=== PATIENT | female | born 1970 | race Caucasian/White ===

== ENCOUNTER 2021-07-21 07:48 | Day surgery (SDC) | payer OTHER ==
[~2021-07-21 07:48] MED LIST: CIPRO500 MG PO; CLONAZEPAM1 MG PO; CODE1TAB37 PO; SYNTHROID75 MCG PO; WELLBUTRI PO
[2021-07-21] MEDS ORDERED: ULTRACET PO (15:29)
== END 2021-07-21 18:05 | disposition home or self-care (01) ==
LOC: CIR.AMB 07:48
PROVIDERS: ATTEND Surgery
DX: C50.012 Malignant neoplasm of nipple and areola, left female breast (principal); Z20.822 Contact with and (suspected) exposure to COVID-19
CPT/HCPCS: 36561; C1751

== ENCOUNTER 2022-04-19 08:30 | Outpatient (CLI) | payer OTHER ==
[~2022-04-19 08:30] MED LIST changes: +ULTRACET PO
== END 2022-04-19 08:31 | disposition home or self-care (01) ==
LOC: LAB 08:30
PROVIDERS: ATTEND Radiology Diagnostic Radiology
DX: C79.31 Secondary malignant neoplasm of brain (principal); C79.32 Secondary malignant neoplasm of cerebral meninges

== ENCOUNTER 2022-05-30 07:23 | Outpatient (CLI) | payer OTHER | END 2022-05-30 07:42 | disposition home or self-care (01) | LOC: MAMO-SONO 07:23 | PROVIDERS: ATTEND Internal Medicine Hematology & Oncology | DX: C50.212 Malignant neoplasm of upper-inner quadrant of left female breast (principal); C77.3 Secondary and unspecified malignant neoplasm of axilla and upper limb lymph nodes ==

== ENCOUNTER 2025-05-06 08:43 | Emergency (ER) | payer OTHER ==
[~2025-05-06] VITALS: Ht 152.4 cm; Wt 50.8 kg
[2025-05-06] MEDS ORDERED: 0.9 % SODIUM CHLORIDE 1,000 ML IV STA (09:15)
[2025-05-06 09:55] LABS: BASO % 0.7 % (0.1-1.2); EOS # 0.06 (0.04-0.54); EOS % 0.6 % (0.7-7.0); LYMPH # 1.75 (1.18-3.74); LYMPH % 17.8 % (19.3-53.1); MEAN PLATELET VOLUME 9.60 fl (9.4-12.4); MONO # 0.68 (0.24-0.82); MONO % 6.9 % (4.7-12.5); NEUT # 7.24 (1.56-6.13); NEUT % 73.8 % (34.0-71.1); RED CELL DISTRIBUTION WIDTH 12.5 % (11.6-14.4)
[2025-05-06 10:09] LABS: URINE APPEARANCE Cloudy; URINE BILIRRUBIN Negative (NEGATIVE); URINE BLOOD Small; URINE COLOR Yellow; URINE GLUCOSE Negative (NEGATIVE); URINE KETONE Trace (NEGATIVE); URINE LEUKOCYTE Large; URINE NITRATE Positive; URINE PROTEIN Negative (NEGATIVE); URINE UROBILINOGEN 0.2 E.U./dl
[2025-05-06 10:10] LABS: URINE EPITHELIAL CELLS 1.5 uL (0.0-38.8); URINE RBC 25.2 uL (0.0-20.8); URINE WBC 2307.0 uL (0.0-23.2)
[2025-05-06 10:13] LABS: URINE BACTERIA > 9821.5 uL (0.0-1933); URINE CAST 0.58 uL (0.0-1.40)
[2025-05-06] MEDS ORDERED: levoFLOXacin IN DEXTROSE 5 % 500MG/100ML PIGGYBAG IV ONE ×2 (11:06→11:15)
[2025-05-06 11:10] LABS: BUN CREA RATIO 11.0 (7.0-25.0); CREATININE SERUM 0.76 mg/dL (0.55-1.02); GFR 78.72; GLUCOSE FASTING 115.0 mg/dL (65-100); OSMOLALITY SERUM 282.0 MOSM/KG (275-295)
[2025-05-06 11:12] LABS: TSH 16.5 uIU/mL (0.358-3.74)
[2025-05-06 11:20] LABS: COVID-19 AG NEGATIVE (NEGATIVE)
== END 2025-05-06 13:12 | disposition home or self-care (01) ==
LOC: ER 08:48
PROVIDERS: Emergency Medicine
DX: N39.0 Urinary tract infection, site not specified (principal); E86.0 Dehydration; R11.10 Vomiting, unspecified; E03.9 Hypothyroidism, unspecified; Z20.822 Contact with and (suspected) exposure to COVID-19; Z88.8 Allergy status to other drugs, medicaments and biological substances

== ENCOUNTER → 2025-05-20 11:15 | Outpatient (CLI) | payer OTHER ==
[2025-05-20 11:58] LABS: BASO % 0.9 % (0.1-1.2); EOS # 0.15 (0.04-0.54); EOS % 1.4 % (0.7-7.0); LYMPH # 2.09 (1.18-3.74); LYMPH % 19.0 % (19.3-53.1); MEAN PLATELET VOLUME 9.60 fl (9.4-12.4); MONO # 0.58 (0.24-0.82); MONO % 5.3 % (4.7-12.5); NEUT # 8.01 (1.56-6.13); NEUT % 72.9 % (34.0-71.1); RED CELL DISTRIBUTION WIDTH 12.6 % (11.6-14.4)
[2025-05-20 12:50] LABS: URINE APPEARANCE Clear; URINE BILIRRUBIN Negative (NEGATIVE); URINE BLOOD Trace; URINE COLOR Yellow; URINE GLUCOSE Negative (NEGATIVE); URINE KETONE Negative (NEGATIVE); URINE LEUKOCYTE Negative; URINE NITRATE Negative; URINE PROTEIN Negative (NEGATIVE); URINE UROBILINOGEN 0.2 E.U./dl
[2025-05-20 12:54] LABS: URINE BACTERIA 6.0 uL (0.0-1933); URINE CAST 0.29 uL (0.0-1.40); URINE EPITHELIAL CELLS 3.3 uL (0.0-38.8); URINE RBC 23.0 uL (0.0-20.8); URINE WBC 7.6 uL (0.0-23.2)
[2025-05-20 13:26] LABS: ALT/SGPT 15.0 U/L (12-78); AST/SGOT 43.0 U/L (15-37); BILIRUBIN TOTAL 0.46 mg/dL (0.3-1.2); BUN CREA RATIO 13.0 (7.0-25.0); CHOL HDL RATIO 3.0 (0-5.0); CREATININE SERUM 0.63 mg/dL (0.55-1.02); GFR 97.75; GLOBULINA 4.1 G/DL (2.4-3.5); GLUCOSE FASTING 104.0 mg/dL (65-100); HDL 50.0 mg/dl (40-60); LDL 85.0 mg/dl (0-130); OSMOLALITY SERUM 282.0 MOSM/KG (275-295); VLDL 15.0 (0-39)
[2025-05-20 13:31] LABS: TSH 6.31 uIU/mL (0.358-3.74)
== END | disposition home or self-care (01) ==
LOC: LAB 11:15
DX: I10 Essential (primary) hypertension (principal); E03.8 Other specified hypothyroidism; E11.9 Type 2 diabetes mellitus without complications; E78.2 Mixed hyperlipidemia; N39.0 Urinary tract infection, site not specified

== ENCOUNTER 2025-05-20 12:01 | Outpatient (CLI) | payer OTHER | END 2025-05-20 12:02 | disposition home or self-care (01) | LOC: SONOGRAMA 12:01 | DX: E03.8 Other specified hypothyroidism (principal) ==

== ENCOUNTER 2025-05-31 10:01 | Inpatient (IN) | payer OTHER ==
[~2025-05-31] VITALS: Ht 154.9 cm; Wt 43.1 kg
--- NOTE | 2025-05-31 10:20 | NUR ---
PACIENTE FEMINA, S/V EN PARAMETRTOS NORMALES/ C/C MAREOS, DEBILIDAD GENERAL, SE UBIUCA EN CAMA 11 EN ESPERA SER EVALUADA POR .
[2025-05-31] MEDS ORDERED: 0.9 % SODIUM CHLORIDE 1,000 ML IV ONE (12:00)
[2025-05-31 12:57] LABS: BASO % 0.1 % (0.1-1.2); EOS # 0.00 (0.04-0.54); EOS % 0.0 % (0.7-7.0); LYMPH # 1.64 (1.18-3.74); LYMPH % 9.6 % (19.3-53.1); MEAN PLATELET VOLUME 9.20 fl (9.4-12.4); MONO # 2.09 (0.24-0.82); NEUT # 13.21 (1.56-6.13); NEUT % 77.4 % (34.0-71.1); RED CELL DISTRIBUTION WIDTH 12.6 % (11.6-14.4)
[2025-05-31 12:58] LABS: MONO % 12.3 % (4.7-12.5)
--- NOTE | 2025-05-31 13:03 | NUR ---
PTE EVALUADA POR SE ORIENTA A PTE SOBRE TX MEDICO REFIERE ENTENDER Y ACEPTAR SE TIFFANIE MUESTRAD DE LAB SEVERIANO ORDEN MEDICA BAJO MEDIDAS ASEPTICAS. PTE EN CAMA 10 CON BARANDAS ELEVADAS.
--- NOTE | 2025-05-31 13:07 | NUR ---
PTE VINO CANALIZADA DESDE AMBULANCIA SE [place] HP LOCK Y LINEA PRIMARIA CON 0.9NNS BAJANDO 125 ML HRS.
[2025-05-31 13:17] LABS: BUN CREA RATIO 29.0 (7.0-25.0); CREATININE SERUM 0.59 mg/dL (0.55-1.02); GFR 105.44; GLUCOSE FASTING 128.0 mg/dL (65-100); OSMOLALITY SERUM 288.0 MOSM/KG (275-295)
[2025-05-31 14:23] LABS: COVID-19 AG NEGATIVE (NEGATIVE)
--- NOTE | 2025-05-31 14:28 | NUR ---
PTE REHUSA A REALIZARSE ESTUDIO CON CONTRASTE.
[2025-05-31 15:45] LABS: ABG PH 7.464 (7.35-7.45)
[2025-05-31 15:46] LABS: ABG PO2 57.5 mmHg (80-100); BICARBONATE 26.3 mmol/l (23-25)
[2025-05-31 15:47] LABS: o2 21 %
[2025-05-31] MEDS ORDERED: 0.9 % SODIUM CHLORIDE 1,000 ML IV SCH (17:00)
[2025-05-31] MEDS ORDERED: IPRATROPIUM BROMIDE 0.5 MG/2.5 ML AMPUL.NEB IH SCH (17:00)
[2025-05-31] MEDS ORDERED: LEVALBUTEROL HCL 1.25 MG/3 ML SOLUTION IH SCH (17:00)
[2025-05-31] MEDS ORDERED: FAMOTIDINE/PF 20 MG in 0.9 % SODIUM CHLORIDE 8 ML IV PUSH SCH (17:07)
[2025-05-31] MEDS ORDERED: METHYLPREDNISOLONE SOD SUCC 40 MG VIAL IV SCH (17:07)
[2025-05-31] MEDS ORDERED: METOPROLOL SUCCINATE 25 MG TAB.SR.24H PO SCH (17:08)
[2025-05-31] MEDS ORDERED: CLOPIDOGREL BISULFATE 75 MG TABLET PO SCH (17:09)
[2025-05-31] MEDS ORDERED: ATORVASTATIN CALCIUM 40 MG TABLET PO SCH (17:09)
[2025-05-31] MEDS ORDERED: ACETAMINOPHEN 500 MG GEL..CAP PO PRN (17:15)
[2025-05-31] MEDS ORDERED: METHYLPREDNISOLONE SOD SUCC 40 MG VIAL ONE (18:00)
[2025-05-31] MEDS ORDERED: PIPERACILLIN/TAZOBACTAM SODIUM 3.375 GM in DEXTROSE 5 % IN WATER 100 ML IV SCH (18:00)
[2025-05-31] MEDS ORDERED: CLOPIDOGREL BISULFATE 75 MG TABLET PO ONE (18:00)
[2025-05-31] MEDS ORDERED: PIPERACILLIN/TAZOBACTAM SODIUM 3.375 GM VIAL IV ONE (18:01)
[2025-05-31] MEDS ORDERED: FAMOTIDINE/PF 20 MG/2 ML VIAL ONE (18:01)
[2025-05-31] MEDS ORDERED: LEVALBUTEROL HCL 1.25 MG/3 ML SOLUTION IH ONE (18:47)
[2025-05-31] MEDS ORDERED: IPRATROPIUM BROMIDE 0.5 MG/2.5 ML AMPUL.NEB IH ONE (18:47)
[2025-05-31 18:55] VITALS: BP 124/73; O2SAT 98
[2025-05-31 19:17] LABS: INR 1.12
[2025-05-31 21:00] VITALS: BP 105/72; O2SAT 95
[2025-06-01] VITALS (8 sets, daily range): BP systolic 89–124; BP diastolic 60–84; O2SAT 91–96
[2025-06-01] MEDS ORDERED: LEVOTHYROXINE SODIUM 175 MCG TABLET PO SCH (06:00)
[2025-06-01] MEDS ORDERED: ENOXAPARIN SODIUM 40 MG/0.4 ML SYRINGE SUBCUTANEO SCH (09:00)
[2025-06-01 09:25] LABS: ABG PH 7.450 (7.35-7.45); BICARBONATE 25.9 mmol/l (23-25)
[2025-06-01 09:48] LABS: ABG PO2 52.6 mmHg (80-100)
[2025-06-01 09:49] LABS: o2 21 %
[2025-06-01] MEDS ORDERED: DEXTROSE 5%-WATER 100ML IV.SOLN ONE (14:57)
[2025-06-02] VITALS (10 sets, daily range): BP systolic 118–157; BP diastolic 76–118; O2SAT 86–95
[2025-06-02] MEDS ORDERED: hydrALAZINE HCL 20 MG VIAL IV PRN (11:00)
[2025-06-02 11:07] LABS: ABG PH 7.276 (7.35-7.45); ABG PO2 68.7 mmHg (80-100); BICARBONATE 26.9 mmol/l (23-25); o2 100 %
[2025-06-02] MEDS ORDERED: MORPHINE SULFATE 2 MG/ML SYRINGE IV ONE (12:00)
[2025-06-02] MEDS ORDERED: IPRATROPIUM BROMIDE 0.5 MG/2.5 ML AMPUL.NEB IH SCH (14:00)
[2025-06-02] MEDS ORDERED: LEVALBUTEROL HCL 1.25 MG/3 ML SOLUTION IH SCH (14:00)
[2025-06-02] MEDS ORDERED: METHYLPREDNISOLONE SOD SUCC 125 MG VIAL IV SCH (17:00)
[2025-06-03] VITALS (9 sets, daily range): BP systolic 140; BP diastolic 80–94; O2SAT 84–94
[2025-06-04] MEDS ORDERED: LEVOTHYROXINE SODIUM 75 MCG TABLET PO SCH (06:00)
== END 2025-06-03 22:04 | disposition expired | DRG 597 ==
LOC: ER 10:01 → SURH 17:17 → SEC-K 17:17 → MEDJ 18:48 → SEC-K 18:48 → SURH 19:47
PROVIDERS: Emergency Medicine; General Practice; ADMIT Internal Medicine; ATTEND Internal Medicine
PROC: BB24Y0Z Computerized Tomography (CT Scan) of Bilateral Lungs using Other Contrast, Unenhanced and Enhanced (ICD-10-PCS; principal; 2025-05-31)
PROC: 3E0F7GC Introduction of Other Therapeutic Substance into Respiratory Tract, Via Natural or Artificial Opening (ICD-10-PCS; 2025-05-31)
PROC: 4A12X4Z Monitoring of Cardiac Electrical Activity, External Approach (ICD-10-PCS; 2025-05-31)
PROC: 8E0ZXY6 Isolation (ICD-10-PCS; 2025-05-31)
PROC: B246ZZZ Ultrasonography of Right and Left Heart (ICD-10-PCS; 2025-06-01)
PROC: 5A0935A Assistance with Respiratory Ventilation, Less than 24 Consecutive Hours, High Flow/Velocity Cannula (ICD-10-PCS; 2025-06-02)
DX: C50.012 Malignant neoplasm of nipple and areola, left female breast (principal); A41.9 Sepsis, unspecified organism; I21.4 Non-ST elevation (NSTEMI) myocardial infarction; J96.11 Chronic respiratory failure with hypoxia; C78.00 Secondary malignant neoplasm of unspecified lung; E03.8 Other specified hypothyroidism; E86.0 Dehydration; I46.9 Cardiac arrest, cause unspecified; Z66 Do not resuscitate; R79.89 Other specified abnormal findings of blood chemistry